=== PATIENT | male | born 1990 | race Caucasian/White ===

== ENCOUNTER 2020-03-05 17:00 | Emergency (ER) | payer SELFPAY ==
[2020-03-05 17:08] VITALS: BP 114/72
--- NOTE | 2020-03-05 17:30 | ER Document Report ---
ED Medical Screen (RME) - General Chief Complaint: Medical Clearance Stated Complaint: MEDICAL CLEARANCE Time Seen by Provider: 03/05/20 17:12 Mode of Arrival: Medic Information source: Patient, Law Enforcement Notes: 29-year-old male presented to ED to get out of going to custodial. He states he did about a half a gram of heroin and Xanax about 1:00. He states he used meth last night. He states he uses heroin between a half and 1 g a day does not use alcohol because he thinks that horrible and smokes a pack a day. The police were with him and stated that he is not going to custodial but he does have a felony warrant and has a court date that he has to attend. I requested an EKG on the patient and Dr. ibarra was going to come and examined the patient as the patient wants to go home. Patient insisted on leaving AGAINST MEDICAL ADVICE. He is alert and oriented answering all questions appropriately at this time he is able to walk with a even steady gait. He states he uses heroin every day. He did ask for Narcan in case he saw somebody that was overdosed and I told him we do not give Narcan to go. Patient refused to wait for an EKG and did leave AGAINST MEDICAL ADVICE TRAVEL OUTSIDE OF THE [place] IN LAST 30 DAYS: No - HPI Onset: This afternoon Quality of pain: No pain Severity: None Pain Level: Denies Associated Symptoms: None Exacerbated by: Denies Relieved by: Denies Similar symptoms previously: Yes Recently seen / treated by doctor: No - Related Data Smoking: Cigarettes Frequency of alcohol use: None Drug Abuse: Heroin, Methamphetamine, Prescription drugs Allergies/Adverse Reactions: No Known Allergies Allergy (Unverified 02/10/14 19:38) Past Medical History - General Information source: Patient - Social History Cigarette use (# per day): Yes Frequency of alcohol use: None Drug Abuse: Heroin, Methamphetamine, Prescription drugs Family history: Reviewed & Not Pertinent - Past Medical History Cardiac Medical History: Reports: None Pulmonary Medical History: Reports: None EENT Medical History: Reports: None Neurological Medical History: Reports: None Endocrine Medical History: Reports: None Renal/ Medical History: Reports: None Malignancy Medical History: Reports None GI Medical History: Reports: None Musculoskeltal Medical History: Reports None Skin Medical History: Reports None Psychiatric Medical History: Reports: Other - Drug addiction Traumatic Medical History: Reports: None Infectious Medical History: Reports: None Past Surgical History: Reports: Hx Inguinal Hernia - Immunizations Hx Diphtheria, Pertussis, Tetanus Vaccination: Yes Review of Systems - Review of Systems Constitutional: No symptoms reported EENT: No symptoms reported Cardiovascular: No symptoms reported Respiratory: No symptoms reported Gastrointestinal: No symptoms reported Genitourinary: No symptoms reported Male Genitourinary: No symptoms reported Musculoskeletal: No symptoms reported Skin: No symptoms reported Hematologic/Lymphatic: No symptoms reported Neurological/Psychological: No symptoms reported Physical Exam - Vital signs Vitals: Temp Pulse Resp BP Pulse Ox 97.9 F 87 16 114/72 100 03/05/20 17:06 03/05/20 17:06 03/05/20 17:06 03/05/20 17:06 03/05/20 17:06 Course - Vital Signs Vital signs: Temp Pulse Resp BP Pulse Ox 97.9 F 87 16 114/72 100 03/05/20 17:26 03/05/20 17:06 03/05/20 17:06 03/05/20 17:06 03/05/20 17:06 Doctor's Discharge - Discharge Clinical Impression: Drug addiction Disposition: AGAINST MEDICAL ADVICE
== END 2020-03-05 17:30 | disposition left against medical advice (07) ==
LOC: ER 17:00
DX: F19.10 Other psychoactive substance abuse, uncomplicated (principal); F11.10 Opioid abuse, uncomplicated; F17.210 Nicotine dependence, cigarettes, uncomplicated
CPT/HCPCS: 99283